=== PATIENT | male | born 1955 | race Caucasian/White ===

== ENCOUNTER → 2016-05-22 | Outpatient (CLI) | payer BC ==
--- NOTE | 2016-05-25 07:23 | XR ---
Bilateral wrists HISTORY: Bilateral wrist pain 3 views of both wrists are submitted Joint space loss is present at the radiocarpal joint bilaterally, there is widening of the scapholuna te distance bilaterally. Small ossific densities are present at the volar aspect of the distal radius . Arthropathy also present at the metacarpophalangeal joints of the first digits, third digit of the right hand with associated hook-like osteophyte. Small ossific density present at the level of the ul zaira styloid on the left. Bone mineralization is maintained. Alignment is normal. IMPRESSION: There may be underlying osteoarthritis, synovial osteochondromatosis, consider crystal de position arthropathy, additional imaging may be of benefit.
== END | disposition home or self-care (01) ==
LOC: RADXRYALE 14:30
PROVIDERS: ATTEND Physician Assistant
DX: M25.531 Pain in right wrist (principal); M25.532 Pain in left wrist

== ENCOUNTER → 2016-07-06 | Outpatient (CLI) | payer BC ==
--- NOTE | 2016-07-07 09:33 | XR ---
EXAMINATION TYPE: XR cervical spine comp DATE OF EXAM: 07/06/2016 5:10 PM CLINICAL HISTORY: pain COMPARISON: NONE TECHNIQUE: Frontal, lateral, oblique, swimmers, and open mouth view of the cervical spine are obtaine d. FINDINGS: The cervical spine is visualized in its entirety from C1 thru the top of T1 level. It is s atisfactory in alignment without evidence of acute fracture or dislocation. The pre-vertebral soft t issue appears within normal limits. Mild degenerative disc space narrowing is noted at C5-6 and C6-7. The C1-C2 articulation is unremarkable on the open mouth view. The oblique images are within normal limits. IMPRESSION: No acute fracture or dislocation is seen in the cervical spine.ICD 10 NO FRACTURE, INITI AL EVALUATION
== END | disposition home or self-care (01) ==
LOC: RADXRYALE 16:54
PROVIDERS: ATTEND Physician Assistant Medical
DX: M54.2 Cervicalgia (principal); M25.532 Pain in left wrist; M25.531 Pain in right wrist; M25.512 Pain in left shoulder
CPT/HCPCS: 72050

== ENCOUNTER → 2016-07-23 | Outpatient (CLI) | payer BC ==
--- NOTE | 2016-07-23 23:09 | MR ---
EXAMINATION TYPE: MR cervical spine wo con DATE OF EXAM: 07/23/2016 7:15 PM COMPARISON: NONE HISTORY: Neck pain xrays on pacs TECHNIQUE: Multiplanar, multisequence images of the cervical spine were acquired. Findings The cervical vertebra have normal alignment. Disc spaces are fairly normal. There is mild decreased s ignal in the disks. There is a small posterior disc bulge at C6-7. There is small posterior disc bulg e at T1-T2 disc. Cervical spinal cord has normal signal pattern. There is no edema. Brain stem is int act. There is no spinal stenosis. There is a developmentally adequate spinal canal. There is no sign of a fracture. There is no cervical paraspinal mass. IMPRESSION: Mild degenerative disc changes. Small posterior disc bulge at C6-7. No spinal stenosis.
== END | disposition home or self-care (01) ==
LOC: RADMRIMAIN 18:46
PROVIDERS: ATTEND Family Medicine
DX: M50.223 Other cervical disc displacement at C6-C7 level (principal); M50.30 Other cervical disc degeneration, unspecified cervical region; M25.532 Pain in left wrist; M25.531 Pain in right wrist; M25.512 Pain in left shoulder
CPT/HCPCS: 72141

== ENCOUNTER → 2018-08-26 | Outpatient (CLI) | payer BC ==
--- NOTE | 2018-08-26 09:12 | XR ---
EXAMINATION TYPE: XR knee complete LT DATE OF EXAM: 08/26/2018 CLINICAL HISTORY: Medial knee pain for one month. TECHNIQUE: Three views of the left knee are obtained. COMPARISON: None. FINDINGS: There is no acute fracture/dislocation evident in left knee. The tri-compartment joint sp aces demonstrate mild medial compartment joint space narrowing and very small tricompartmental osteop hytes. Small suprapatellar joint effusion is also seen. The overlying soft tissue appears unremarkabl e. IMPRESSION: There is no acute fracture or dislocation in the left knee. Mild tricompartmental arthro jesse.
== END | disposition home or self-care (01) ==
LOC: RADXRYALE 08:34
PROVIDERS: ATTEND Physician Assistant Medical
DX: M17.12 Unilateral primary osteoarthritis, left knee (principal)

== ENCOUNTER → 2019-04-18 | Outpatient (CLI) | payer BC ==
--- NOTE | 2019-04-19 08:11 | XR ---
EXAMINATION TYPE: XR hand complete RT DATE OF EXAM: 04/18/2019 CLINICAL HISTORY: Right hand swelling around the third metacarpal with no known injury TECHNIQUE: Frontal, lateral and oblique images of the right hand are obtained. COMPARISON: None. FINDINGS: There is no acute fracture/dislocation evident in the right hand. The joint spaces in the right hand aligned. Bony productive changes seen of the distal interphalangeal joints, first proximal interphalangeal joint, first carpometacarpal joint, and radial ulnar joint. There is narrowing of th e radiocarpal joint. No radiopaque foreign body is seen. IMPRESSION: 1. No acute fracture or dislocation in the right hand. 2. Moderate arthropathy of the right hand most pronounced in the radial ulnar and radiocarpal joints. Overall distribution favors osteoarthritis.
== END | disposition home or self-care (01) ==
LOC: RADXRYALE 16:08
PROVIDERS: ATTEND Physician Assistant Medical
DX: M19.041 Primary osteoarthritis, right hand (principal)

== ENCOUNTER → 2024-04-05 | Outpatient (CLI) | payer MEDICARE ==
--- NOTE | 2024-04-06 13:25 | CA ---
Exercise Stress Test Report Name: Jhony Car Exam Date: 04/05/2024 11:06 Exam Location: [facility] Ht (in): 69 Wt (lb): 248 BSA: 2.26 Ordering Phys: Chidi Short DO Referring Phys: Magali Narayanan PAC Technologist: Manolo Antonio Age: 68 Gender: M : 1955 Procedure CPT: Indications: R01.1 CARDIAC MURMUR, UNSPECIFIED ICD-10 Codes: Patient History: Chest pain, hyperension and hyperlipidemia Medications: Meds past 24 hrs: Pretest Chest Pain: STRESS TEST Raffi Protocol Exercise Duration (min:sec): 05:[address] Depressions (mm): Angina Score: Logan Score: Resting HR (bpm): 74 Peak HR (bpm): 160 Resting BP (mmHg): 152 / 76 Peak BP (mmHg): 211 / 93 MPHR: 152 Target HR: 129 % MPHR: 105 METS: 7.1 Total Dose: Peak Dose: Atropine: Double Product: 74192 BP Response: Stress Termination: MAX EXERTION/TARGET HR Stress Symptoms: NO SYMPTOMS Stress Summary: ECG ANALYSIS Resting ECG: Stress ECG: CONCLUSIONS Patient underwent exercise stress EKG with a Raffi protocol treadmill stress test. Patient exercised into Stage 2 for a total of 5 minutes and 59 seconds reaching a total of 7.1 METS. Patient's maximum heart rate was 160 which represented 105% age- predicted maximum heart rate. Stress EKG findings: At baseline patient's EKG showed normal sinus rhythm, normal axis, poor R-wave progression, no significant ST or T wave abnormalities. At peak exercise, EKG showed mildly abnormal 0.5-[address] depressions in the inferior and lateral leads. Conclusions: 1. Mildly abnormal stress EKG with 0.5-[address] depressions in the inferior lateral leads. Clinical correlation recommended. Consider stress testing with imaging modality. 2. Fair exercise capacity. Dr. Eugenio Barron DO (Electronically Signed) Final Date: 05 April 2024 15:27
== END | disposition home or self-care (01) ==
LOC: RADNMMAIN 10:31
PROVIDERS: ATTEND Family Medicine
DX: R01.1 Cardiac murmur, unspecified (principal); I10 Essential (primary) hypertension; R94.31 Abnormal electrocardiogram [ECG] [EKG]
CPT/HCPCS: 93017

== ENCOUNTER → 2024-05-15 | Outpatient (CLI) | payer MEDICARE ==
--- NOTE | 2024-05-15 17:25 | CA ---
Transthoracic Echo Report Name: Jhony Car Age: 68 Gender: M : 1955 Exam Date: 05/15/2024 10:57 Exam Location: [place] [facility] Ht (in): 68 Wt (lb): 243 Ordering Physician: Chidi Short DO Attending/Referring Phys: Magali Narayanan PAC Management Professor Cathy Oro RDCS Procedure CPT: Indications: I10 HTN Cardiac Hx: Technical Quality: Fair Contrast 1: Total Dose (mL): Contrast 2: Total Dose (mL): MEASUREMENTS (Male / Female) Normal Values 2D ECHO LV Diastolic Diameter PLAX 4.9 cm 4.2 - 5.9 / 3.9 - 5.3 cm LV Systolic Diameter PLAX 2.9 cm IVS Diastolic Thickness 1.0 cm 0.6 - 1.0 / 0.6 - 0.9 cm LVPW Diastolic Thickness 1.2 cm 0.6 - 1.0 / 0.6 - 0.9 cm LV Relative Wall Thickness 0.4 RV Internal Dim ED PLAX 2.6 cm Aortic Root Diameter 3.7 cm LA Systolic Diameter LX 3.4 cm 3.0 - 4.0 / 2.7 - 3.8 cm LV Diastolic Volume MOD BP 77.3 cm??? 67 - 155 / 56 - 104 cm??? LV Systolic Volume MOD BP 27.0 cm??? 22 - 58 / 19 - 49 cm??? LV Ejection Fraction MOD BP 65.0 % >= 55 % LV Cardiac Index MOD BP 1457.1 cm???/min???m??? LV Diastolic Volume MOD 4C 85.5 cm??? LV Systolic Volume MOD 4C 25.2 cm??? LV Ejection Fraction MOD 4C 70.5 % LV Cardiac Index MOD 4C 1746.2 cm???/min???m??? LV Diastolic Length 4C 7.8 cm LV Systolic Length 4C 6.3 cm LV Diastolic Volume MOD 2C 61.6 cm??? LV Systolic Volume MOD 2C 29.5 cm??? LV Ejection Fraction MOD 2C 52.1 % LV Cardiac Index MOD 2C 930.6 cm???/min???m??? LV Diastolic Length 2C 6.8 cm LV Systolic Length 2C 6.3 cm Ascending Aorta Diameter 3.6 cm M-MODE Aortic Root Diameter MM 3.9 cm LA Systolic Diameter MM 3.4 cm LA Ao Ratio MM 0.9 AV Cusp Separation MM 2.0 cm DOPPLER AV Peak Velocity 142.3 cm/s AV Peak Gradient 8.1 mmHg AV Mean Velocity 100.8 cm/s AV Mean Gradient 4.5 mmHg AV Velocity Time Integral 34.9 cm LVOT Peak Velocity 111.9 cm/s LVOT Peak Gradient 5.0 mmHg LVOT Velocity Time Integral 30.0 cm Mitral E Point Velocity 94.2 cm/s Mitral A Point Velocity 89.9 cm/s Mitral E to A Ratio 1.0 MV Deceleration Time 309.3 ms MV E' Velocity 7.4 cm/s Mitral E to MV E' Ratio 12.6 TR Peak Velocity 174.5 cm/s TR Peak Gradient 12.2 mmHg Right Ventricular Systolic Press 17.2 mmHg FINDINGS Left Ventricle Left ventricular ejection fraction is estimated at 55-60%. Normal left ventricular systolic function with no obvious regional wall motion abnormalities.left ventricular cavity size normal. Right Ventricle Normal right ventricular size and function. Right ventricular systolic pressure within normal limits. Right Atrium Normal right atrial size. Left Atrium Normal left atrial size. Mitral Valve Structurally normal mitral valve. Trace mitral regurgitation. No mitral stenosis. Aortic Valve Trileaflet aortic valve. No aortic valve stenosis or regurgitation. Tricuspid Valve Structurally normal tricuspid valve. No tricuspid stenosis. No tricuspid stenosis. Pulmonic Valve Structurally normal pulmonic valve. Trace pulmonic regurgitation. No pulmonic stenosis. Pericardium No pericardial or pleural effusion. Aorta Mild aortic dilatation at the level of the sinuses of valsalva (root). CONCLUSIONS 1. Normal left ventricular size and systolic function 2. Trace mitral and tricuspid regurgitation Previewed by: Dr. Elsie Birmingham MD (Electronically Signed) Final Date: 15 May 2024 17:24
== END | disposition home or self-care (01) ==
LOC: RADECHMAIN 10:48
PROVIDERS: ATTEND Family Medicine
DX: I08.1 Rheumatic disorders of both mitral and tricuspid valves (principal); I10 Essential (primary) hypertension; R01.1 Cardiac murmur, unspecified
CPT/HCPCS: 93306

== ENCOUNTER 2024-07-05 09:09 | Day surgery (SDC) | payer MEDICARE ==
[2024-07-03 08:18] VITALS: BMI 36.9
[~2024-07-05 09:09] MED LIST: ALPRAZolam 0.25 MG TAB PO PRN; ALPRAZolam 0.5 MG TAB PO PRN; NITROGLYCERIN SL TABS 0.4 MG TAB SUBLINGUAL PRN
[2024-07-05 09:34] VITALS: RESP 18; TEMP 98.7
[2024-07-05] MEDS: IV FLUID CONTINUATION 1,000 ML IV ONE ×2 (09:34→13:00)
[2024-07-05] MEDS: SODIUM CHLORIDE 0.9% 1,000 ML in EMPTY BAG 1 BAG IV SCH (09:35)
[2024-07-05] MEDS: ASPIRIN 325 MG TAB PO ONE (09:36)
[2024-07-05] MEDS: fentaNYL (PF) 50 MCG/1 ML VIAL IVP ONE (11:15)
[2024-07-05] MEDS: MIDAZOLAM 2 MG/2 ML VIAL IVP ONE ×2 (11:15→11:25)
[2024-07-05] MEDS: LIDOCAINE 1% INJ 10MG/ML (20 ML MDV) SQ ONE (11:15)
[2024-07-05] MEDS: VERAPAMIL SYRINGE (5 MG/10 ML) INTRAARTER ONE (11:17)
[2024-07-05] MEDS: HEPARIN SODIUM 1,000 UN/ML (10ML VL) IVP ONE (11:25)
[2024-07-05] MEDS: HEPARIN SODIUM,PORCINE 10,000 UNIT in SODIUM CHLORIDE 0.9% 1,000 ML IRRIGATION PRN (11:25)
[2024-07-05] MEDS: HEPARIN SODIUM,PORCINE (1 ML) 2,500 UNIT in SODIUM CHLORIDE 0.9% 250 ML IRRIGATION PRN (11:25)
[2024-07-05] MEDS: IOPAMIDOL-370 100ML BTL INJ ONE (11:28)
--- NOTE | 2024-07-05 13:30 | P.CARDCATH ---
Description of Procedure: PROCEDURES PERFORMED: Bilateral coronary angiography, ultrasound guided arterial access INDICATION: Abnormal stress test CONSENT:I have discussed the risks, benefits and alternative therapies for the above-mentioned procedure and for both sedation/analgesia as well as necessary blood product administration, if indicated, as they pertain to this patient. The patient has indicated understanding and acceptance of the risks and procedures discussed. PROCEDURE: After the risks, benefits and alternatives of the above mentioned procedure explained in detail with the patient, informed consent was obtained. Patient was taken to the catheterization lab and prepped and draped in usual fashion. Ultrasound guidance was used to assess for arterial access. 1% lidocaine was used to anesthetize the right radial artery. A 6-Malaysian sheath was placed in the right radial artery using modified Seldinger technique and ultrasound guidance. Left coronary angiography was performed with a 5-Malaysian JL 3.5 catheter and right coronary angiography was performed with a 5-Malaysian FR5 catheter in various views. The right radial sheath was removed and a TR band was placed with hemostasis achieved. The patient tolerated the procedure well. Patient was transported back to the post catheterization holding area in stable condition. Conscious Sedation: Patient was monitored under the direct supervision of myself for conscious sedation using Versed and fentanyl for a total duration of 14 minutes HEMODYNAMICS: Aorta: 138/76 SELECTIVE CORONARY ARTERIOGRAPHY: LEFT MAIN: The left main is a large caliber vessel which bifurcates into the LAD and circumflex. There is no significant stenosis. LEFT ANTERIOR DESCENDING CORONARY ARTERY: LAD is a large caliber vessel which wraps around to the apex. There were mild luminal irregularities of the LAD with 10% mid LAD stenosis. LEFT CIRCUMFLEX CORONARY ARTERY: Left circumflex is a moderate caliber vessel without significant stenosis. RIGHT CORONARY ARTERY: The right coronary artery is a large caliber vessel which gives off a PDA and PLV branch and is the dominant vessel. There is a proximal RCA 30% stenosis. FINAL IMPRESSION: 1. CAD as described above including 30% proximal RCA and 10% LAD stenosis PLAN: 1. Aggressive risk factor modification per most recent ACC/AHA guidelines. 2. Follow-up in the office in 1-2 weeks.
[2024-07-05 15:18] VITALS: BP 128/64; PULSE 62
== END 2024-07-05 15:10 | disposition home or self-care (01) ==
LOC: CATHCVL 09:09
PROVIDERS: ATTEND Internal Medicine
DX: I25.10 Atherosclerotic heart disease of native coronary artery without angina pectoris (principal); I10 Essential (primary) hypertension; E78.5 Hyperlipidemia, unspecified; F10.90 Alcohol use, unspecified, uncomplicated; Z79.899 Other long term (current) drug therapy
CPT/HCPCS: 99152; 93458; C1894; J2250; J1644 ×3; J2003; Q9967; J3010